=== PATIENT | male | born 1980 | race African-American/Black ===

== ENCOUNTER 2024-12-01 08:08 | Emergency (ER) | payer OTHER ==
[~2024-12-01] VITALS: Ht 167.6 cm; Wt 75.0 kg
[2024-12-01 08:25] VITALS: TEMP 97.7
[2024-12-01] MEDS ORDERED: IBUP-1506 PO (08:32)
[2024-12-01] MEDS: KETOROLAC TROMETHAMINE 60 MG/2 ML VIAL IM ONE (10:32)
[2024-12-01] MEDS: LIDOCAINE 5% TRANSDERMAL PATCH TD ONE (10:33)
[2024-12-01 11:38] VITALS: BP 112/76; PULSE 82; RESP 16; O2SAT 99
== END 2024-12-01 12:21 | disposition home or self-care (01) ==
LOC: EMS 08:08
DX: S29.012A Strain of muscle and tendon of back wall of thorax, initial encounter (principal); X58.XXXA Exposure to other specified factors, initial encounter; Y93.89 Activity, other specified; Y92.89 Other specified places as the place of occurrence of the external cause; Y99.8 Other external cause status
CPT/HCPCS: 99283; 96372; J1885